=== PATIENT | female | born 1935 | race Caucasian/White ===

== ENCOUNTER 2020-12-07 11:33 | Day surgery (SDC) | payer MEDICARE ==
[~2020-12-07] VITALS: Ht 157.5 cm; Wt 55.2 kg
[~2020-12-07 11:33] MED LIST: ACET325T14 PO; CALC1TAB76 PO; CIME200T6 PO; GABA100C PO; HYDR-2214 PO; LANS15CA5 PO; MULT-658 PO; OMEG1CAP23 PO; TIZA4CAP PO
[2020-12-07 12:10] VITALS: BP 128/67
[2020-12-07] MEDS ORDERED: SODIUM CHLORIDE 0.9% 1,000 ML IV SCH (12:30)
[2020-12-07] MEDS ORDERED: LIDOCAINE 1%, 20ML ONE (13:05)
[2020-12-07] MEDS ORDERED: FENTANYL PF 100 MCG/2ML ONE (13:14)
[2020-12-07] MEDS ORDERED: MIDAZOLAM 1 MG/ML, 5ML ONE (13:14)
[2020-12-07] MEDS ORDERED: NALOXONE 1 MG/ML, 2ML ONE (13:15)
[2020-12-07] MEDS ORDERED: FLUMAZENIL 0.1 MG/1 ML, 5ML ONE (13:15)
== END 2020-12-07 15:00 | disposition home or self-care (01) ==
LOC: RAD 11:33
PROVIDERS: ATTEND Internal Medicine Hematology & Oncology
DX: Z45.2 Encounter for adjustment and management of vascular access device (principal); C92.00 Acute myeloblastic leukemia, not having achieved remission; D69.59 Other secondary thrombocytopenia; D70.2 Other drug-induced agranulocytosis; T45.1X5A Adverse effect of antineoplastic and immunosuppressive drugs, initial encounter; I48.91 Unspecified atrial fibrillation; M19.90 Unspecified osteoarthritis, unspecified site; Z79.899 Other long term (current) drug therapy; Z88.0 Allergy status to penicillin; Z88.8 Allergy status to other drugs, medicaments and biological substances; Z91.040 Latex allergy status
CPT/HCPCS: 36590; 99156; 99157; J2250; J3010; J7030; 77001; J2310